=== PATIENT | female | born 1955 | race Caucasian/White ===

== ENCOUNTER 2018-12-27 06:30 | Day surgery (SDC) | payer BC ==
[2018-12-27] MEDS ORDERED: Lidocaine 1% with EPINEPHrine 1:100,000 50 ML MDV ONE (06:48)
[2018-12-27] MEDS ORDERED: Bupivacaine 0.5% 50 ML MDV ONE (06:48)
[2018-12-27] MEDS ORDERED: Dextrose 5%-Lactated Ringers 1,000 ML IV SCH (07:00)
[2018-12-27] MEDS ORDERED: Acetaminophen 500 MG Tab PO ONE (07:00)
[2018-12-27] MEDS ORDERED: Midazolam 1 MG/ML 2 ML SDV ONE (07:05)
[2018-12-27] MEDS ORDERED: Propofol 200 MG/20 ML SDV ONE ×3 (07:05→08:33)
[2018-12-27] MEDS ORDERED: fentaNYL 100 MCG/2 ML SDV ONE (07:05)
[2018-12-27] MEDS ORDERED: ceFAZolin 2 GM in Premix Bag 1 BAG IV ONE (07:45)
[2018-12-27] MEDS ORDERED: ceFAZolin 2 GM in Sodium Chloride 0.9% 100 ML IV ONE (07:45)
[2018-12-27] MEDS ORDERED: Ketorolac 60 MG/2 ML SDV ONE (08:35)
[2018-12-27] MEDS ORDERED: Acetaminophen/HYDROcodone 325-5 MG Tab PO ONE (09:31)
[2018-12-27 10:08] VITALS: BP 136/58
--- NOTE | 2018-12-31 12:00 | OR ---
DATE OF PROCEDURE: 12/27/2018 SURGEON: Mateo Porter MD PREOPERATIVE DIAGNOSIS: Right inguinal hernia. POSTOPERATIVE DIAGNOSES: 1. Incarcerated right femoral hernia. 2. Non-incarcerated direct inguinal hernia. 3. Right ilioinguinal nerve and iliohypogastric nerves at risk for scar entrapment. PROCEDURE PERFORMED: Right inguinal exploration with: 1. Repair of incarcerated right femoral hernia with mesh plug technique (40781). 2. Repair of non-incarcerated direct inguinal hernia with mesh plug technique (13758). 3. Excision of portion of right ilioinguinal nerve (14078). 4. Excision of portion of right iliohypogastric nerve (53689). ANESTHESIA: Local plus IV sedation. TERMITE CONTROL REPRESENTATIVE: Charley Peterson PA-C, and ANDREAS Rashid. INDICATION FOR PROCEDURE: This is a 63-year-old female, presenting with increasingly symptomatic right inguinal hernia. Clinically, she has an obvious fairly reducible broad- based direct inguinal hernia, but at times, the patient reports quite a bit of pain and some paresthesia-type symptoms into the thigh and increased bulge, which she needs to reduce. This is suggestive of a possible recurrent femoral hernia as well. This will be investigated at the time of the inguinal exploration. At any rate, if hernia is identified, it will be repaired with mesh plug technique. Potential risks of the procedure including bleeding, infection, injury to underlying viscera, problems with mesh becoming infected or the hernia recurring were all gone over, as well as possibility of chronic pain post procedure. The issue of ilioinguinal nerve and sometimes the iliohypogastric nerve becoming entrapped in scar following these procedures, resulting in chronic neuropathic pain, were also gone over with the patient, and we will often divide these if it appears that the mesh will be coming in contact with those nerves postoperatively, so as to avoid chronic neuropathic pain, and with this, the patient would have some area of cutaneous anesthesia around the inguinal region. This was all reviewed, and the patient wishes to proceed. DESCRIPTION OF PROCEDURE: The patient was taken to the operating room and placed in supine position. IV sedation was administered, after which the abdomen and groin areas were prepped and draped. The right inguinal area was then anesthetized with 1% lidocaine mixed with Marcaine, and a standard inguinal incision made and carried down through the skin and subcutaneous tissue and through the external oblique aponeurosis. As one entered that plane, the subaponeurotic flaps were then raised superiorly and inferiorly. Both the ilioinguinal nerve and iliohypogastric nerve lay across the area where the flat portion of mesh plug system would eventually be placed, and these were therefore felt to be at risk for separate scar entrapment. Given this, these were divided medially, and then a portion of each nerve excised with electrocautery at the far lateral aspect of the incision and separately sent as surgical specimens. The patient was noted to have no indirect type hernia. The round ligament was traced back and divided flush with the internal ring, and at that point, the patient had an obvious direct inguinal hernia. The transversalis fascia over this was then incised, which allowed dissection of that structure from the conjoint tendon medially, superiorly, and laterally. As one dissected further down toward the area of the Gabriel's ligament, the patient was noted also to have an incarcerated femoral hernia, as somewhat expected preoperatively. This contained some bladder path and was gradually reduced with manual traction and cautery dissection. Once that was reduced, no further problems were noted. At this point, an extra- large mesh plug was then placed. This was positioned and affixed initially to Gabriel's ligament at a point that would occlude the femoral canal. The mesh was affixed to the Gabriel's ligament with some titanium tacking screws, then the other side of the conjoint tendon medially, laterally, and superiorly with horizontal mattress sutures of both 2-0 Vicryl stitch affixing the mesh well away from the edges of the hernia site. At that point, the conjoint tendon was sutured down to the shelving portion of the inguinal ligament with a running 0 Vicryl stitch, and the flat portion of mesh plug system placed across the inguinal floor and affixed medially to the pubic tubercle with a titanium tacking screw and then affixed with additional 3-0 Vicryl stitches to the underlying inguinal floor. Over this, external oblique aponeurosis was approximated with 3-0 Vicryl stitch, as was Jamshid's fascia, and the skin closed with a 4-0 Vicryl subcuticular stitch. Dressing was applied. The patient was taken to the recovery room in satisfactory condition. Physician learning support assistant, Charley Peterson PA-C, played an essential role in assisting in this case, helping to position the patient, retract structures as needed, as well as suturing and cutting sutures when indicated. Her presence improved patient's safety and decreased operative time. Mateo Porter MD /[id number]
== END 2018-12-27 10:33 | disposition home or self-care (01) ==
LOC: JP.SDS 06:30
PROVIDERS: ATTEND Surgery
DX: K41.30 Unilateral femoral hernia, with obstruction, without gangrene, not specified as recurrent (principal); K40.90 Unilateral inguinal hernia, without obstruction or gangrene, not specified as recurrent; F17.200 Nicotine dependence, unspecified, uncomplicated; Z88.1 Allergy status to other antibiotic agents
CPT/HCPCS: 49505; 49553; 64772; 88302; A9270; C1781; J0690; J1885; J2250; J2704; J3010; J3490; J7042

== ENCOUNTER → 2019-01-08 | Outpatient (CLI) | payer BC ==
--- NOTE | 2019-01-08 13:03 | CRLUS ---
INDICATION: Right inguinal/femoral hernia repair. Swelling. Evaluate fluid collection. TECHNIQUE: Directed ultrasound of the right inguinal region. FINDINGS: There is a 3.6 x 3.6 x 2.5 cm complex partly septated fluid collection with some echogenic debris. There is no blood flow within this. This does not appear to represent a hernia. A small abscess could not be entirely excluded. Clinical correlation is recommended. IMPRESSION : Complex nonvascular fluid collection right inguinal region. Dictated by Andrews Ayon MD @ Jan 08 2019 12:58PM Signed by Dr. Andrews Ayon @ Jan 08 2019 1:01PM
== END | disposition home or self-care (01) ==
LOC: JP.US 10:49
PROVIDERS: ATTEND Surgery
DX: R10.31 Right lower quadrant pain (principal)
CPT/HCPCS: 76705

== ENCOUNTER 2019-02-06 06:31 | Day surgery (SDC) | payer BC ==
[2019-02-06] MEDS ORDERED: Dextrose 5%-Lactated Ringers 1,000 ML IV SCH (07:30)
[2019-02-06] MEDS ORDERED: Propofol 200 MG/20 ML SDV ONE ×2 (09:16→09:35)
[2019-02-06 10:50] VITALS: BP 95/58
--- NOTE | 2019-02-10 07:52 | OR ---
DATE OF PROCEDURE: 02/06/2019 SURGEON: Mateo Porter MD PREOPERATIVE DIAGNOSIS: Positive Cologuard test. POSTOPERATIVE DIAGNOSES: 1. Positive Cologuard test. 2. Markedly tortuous colon precluding full colonoscopy. OPERATIVE PROCEDURE: Colonoscopy to distal transverse colon. ANESTHESIA: IV sedation. INDICATION FOR PROCEDURE: This is a 63-year-old who had a positive Cologuard test, who now presents for colonoscopy. Potential risks of the procedure including bleeding and perforation were discussed, and the patient wishes to proceed. DETAILS OF PROCEDURE: The patient was taken to the operating room and placed in the left lateral decubitus position. IV sedation was administered, after which the initial digital rectal exam was performed and was unremarkable. The colonoscope was then passed into the rectum with retroflexion revealing uncomplicated hemorrhoidal columns. The scope was then passed to what appeared to be the distal transverse colon, somewhat proximal to the splenic flexure. To that level, no abnormalities were noted, other than the colon appeared to be quite tortuous. The scope could not be passed further proximally, due to lack of additional length of the scope needed due to tortuosity of the colon. The scope was then withdrawn and the above findings reconfirmed. The prep overall was good. Plan will be to proceed with scheduling the patient for barium enema x-ray to evaluate the remainder of the colon. This is scheduled for next Sunday. Mateo Porter MD /[id number]
== END 2019-02-06 10:50 | disposition home or self-care (01) ==
LOC: JP.SDS 06:31
PROVIDERS: ATTEND Surgery
DX: R19.5 Other fecal abnormalities (principal); K64.9 Unspecified hemorrhoids; Q43.8 Other specified congenital malformations of intestine; I83.90 Asymptomatic varicose veins of unspecified lower extremity; F17.210 Nicotine dependence, cigarettes, uncomplicated; F32.9 Major depressive disorder, single episode, unspecified; R53.82 Chronic fatigue, unspecified; Z88.1 Allergy status to other antibiotic agents
CPT/HCPCS: 45378; J2704; J7042

== ENCOUNTER → 2022-06-21 | Day surgery (SDC) | payer BC ==
[~2022-06-21] MED LIST: Acetaminophen/HYDROcodone 325-5 MG Tab PO ONE; Bupivacaine 0.5% 30 ML SDV ONE; Clindamycin Phosphate in D5W 900 MG in Premix Bag 1 BAG IV ONE; Clindamycin in 0.9 % Sod Chlor 600 MG in Premix Bag 1 BAG IV ONE; Dexamethasone 4 MG/ML SDV ONE; Ketorolac 30 MG/ML SDV ONE; Lactated Ringers 1,000 ML IV SCH; Nozin Nasal Sanitizer NASBOTH ONE; Ondansetron 4 MG/2 ML SDV ONE; Propofol 200 MG/20 ML SDV ONE; fentaNYL 100 MCG/2 ML SDV ONE
[2022-06-21 06:34] LABS: ESTIMATED GFR 82 mL/min (>60)
[2022-06-21 10:12] VITALS: BP 120/63; PULSE 63
== END ==
LOC: JP.SDS 05:42
PROVIDERS: ATTEND Specialist
DX: S83.231A Complex tear of medial meniscus, current injury, right knee, initial encounter (principal); Z79.899 Other long term (current) drug therapy; Z88.1 Allergy status to other antibiotic agents; X58.XXXA Exposure to other specified factors, initial encounter
CPT/HCPCS: 36415; 80053; 85027; A9270-GY; J1100; J1885; J2405; J2704; J3010; J3490; J7120

== ENCOUNTER 2023-02-07 16:46 | Emergency (ER) | payer MEDICARE, BC ==
[2023-02-07] MEDS ORDERED: HYDROmorphone 1 MG/ML Syringe IM ONE (17:31)
[2023-02-07 17:32] VITALS: BP 115/59; PULSE 63
[2023-02-07] MEDS ORDERED: Propofol 200 MG/20 ML SDV IVPUSH ONE (18:52)
[2023-02-07] MEDS ORDERED: Sodium Chloride 0.9% 1,000 ML IV SCH (19:00)
== END 2023-02-07 20:24 | disposition home or self-care (01) ==
LOC: JP.ED 16:46
DX: S52.591B Other fractures of lower end of right radius, initial encounter for open fracture type I or II (principal); Z88.1 Allergy status to other antibiotic agents; W19.XXXA Unspecified fall, initial encounter
CPT/HCPCS: 25605; 73100; 73110; 96372; 99152; 99284; J1170; J2704; J7030

== ENCOUNTER 2023-02-08 14:58 | Day surgery (SDC) | payer MEDICARE, BC ==
[~2023-02-08 14:58] MED LIST changes: -Acetaminophen/HYDROcodone 325-5 MG Tab PO ONE; -Clindamycin Phosphate in D5W 900 MG in Premix Bag 1 BAG IV ONE; -Clindamycin in 0.9 % Sod Chlor 600 MG in Premix Bag 1 BAG IV ONE; -Dexamethasone 4 MG/ML SDV ONE; -Ketorolac 30 MG/ML SDV ONE; -Lactated Ringers 1,000 ML IV SCH; -Nozin Nasal Sanitizer NASBOTH ONE; -Ondansetron 4 MG/2 ML SDV ONE; -Propofol 200 MG/20 ML SDV ONE; -fentaNYL 100 MCG/2 ML SDV ONE
[2023-02-08] MEDS ORDERED: Nozin Nasal Sanitizer NASBOTH ONE (15:00)
[2023-02-08 15:47] LABS: HEMATOCRIT 39.1 % (34.3-46.0); HEMOGLOBIN 13.3 g/dL (11.2-15.5); MEAN CORPUSCULAR HEMOGLOBIN 32.7 pg (31.6-35.5); MEAN CORPUSCULAR VOLUME 96.1 fL (81.4-99.0); RED BLOOD CELL COUNT 4.07 M/uL (3.77-5.24); WHITE BLOOD CELL COUNT,WBC 6.7 K/uL (3.2-11.0)
[2023-02-08 15:52] LABS: A/G RATIO 0.9 (1.2-2.2); ALANINE AMINOTRANSFERASE,ALT 25 U/L (12-78); ALBUMIN 3.5 g/dL (3.4-5.0); ALKALINE PHOSPHATASE 89 U/L (46-116); ANION GAP 12.7 mmol/L (5.0-14.0); ASPARTATE AMNIOTRANSFERASE,AST 20 U/L (15-37); BILIRUBIN TOTAL 0.7 mg/dL (0.2-1.0); BLOOD UREA NITROGEN,BUN 9 mg/dL (7-18); CALCIUM 8.6 mg/dL (8.5-10.1); CARBON DIOXIDE,CO2 24 mmol/L (21-32); CHLORIDE,CL 104 mmol/L (100-108); CREATININE 0.7 mg/dL (0.6-1.0); EST CRCL DRUG DOSING (CG) 71.14 mL/min; ESTIMATED GFR 95 mL/min (>60); GLUCOSE RANDOM 103 mg/dL (74-106); POTASSIUM,K 3.8 mmol/L (3.6-5.2); PROTEIN TOTAL,TP 7.3 g/dL (6.4-8.2); SODIUM,NA 141 mmol/L (140-148)
[2023-02-08] MEDS ORDERED: Albuterol/Ipratropium 3.0-0.5 MG/3 ML Neb Soln NEB ONE (15:52)
[2023-02-08] MEDS ORDERED: Propofol 200 MG/20 ML SDV ONE ×2 (15:55→16:45)
[2023-02-08] MEDS ORDERED: fentaNYL 100 MCG/2 ML SDV ONE ×4 (15:55→16:56)
[2023-02-08] MEDS ORDERED: Midazolam 1 MG/ML 2 ML SDV ONE (15:55)
[2023-02-08] MEDS ORDERED: Ondansetron 4 MG/2 ML SDV ONE ×2 (15:56→17:54)
[2023-02-08] MEDS ORDERED: Dexamethasone 4 MG/ML SDV ONE (15:56)
[2023-02-08] MEDS ORDERED: Lactated Ringers 1,000 ML IV SCH (16:00)
[2023-02-08] MEDS ORDERED: ceFAZolin 2 GM in Premix Bag 1 BAG IV ONE (16:15)
[2023-02-08] MEDS ORDERED: Ondansetron 4 MG/2 ML SDV IVPUSH ONE (17:52)
[2023-02-08 20:29] VITALS: BP 136/98; PULSE 67
== END 2023-02-08 20:20 | disposition home or self-care (01) ==
LOC: JP.SDS 14:58
PROVIDERS: ATTEND Specialist
DX: S52.351A Displaced comminuted fracture of shaft of radius, right arm, initial encounter for closed fracture (principal); F32.A Depression, unspecified; I34.0 Nonrheumatic mitral (valve) insufficiency; Z88.1 Allergy status to other antibiotic agents; Z91.040 Latex allergy status; Z88.8 Allergy status to other drugs, medicaments and biological substances; W19.XXXA Unspecified fall, initial encounter
CPT/HCPCS: 25515; 36415; 76000; 80053; 85027; 93005; 93010; 94640; A9270; J0690; J1100; J2250; J2405; J2704; J3010; J3490; J7120; J7620